=== PATIENT | female | born 1995 | race African-American/Black ===

== ENCOUNTER 2017-08-03 15:07 | Emergency (ER) | payer SELFPAY ==
--- NOTE | 2017-08-03 16:28 | UC ---
Lower Extremity/Ankle HPI - HPI Summary HPI Summary: 22 year old female with leg pain. Pt c/o LEFT ankle pain getting worse since 07/28. States she fell down 5 steps and went to ER the next day 07/29/17. Had XRAY done- neg fx. Sent home w/ gel ankle splint, crutches and rx naproxen. States since this past Tue LEFT ankle pain/swelling has gotten worse. Unable to bear weight on LEFT foot. States pain is in lateral aspect and shoots up LEFT leg- denies foot pain. Pain worsening each day, more loss of ROM, pain 9/10 or 10/10 when not elevated. Pt has broken ankle 2 times in the past and this hurts more than that. NSAIDs have not helped. [ End ] - History of Current Complaint Chief Complaint: UCLowerExtremity Stated Complaint: LEFT ANKLE INJ Time Seen by Provider: 08/03/17 16:19 Hx Obtained From: Patient Hx Last Menstrual Period: 07/31/17 Onset/Duration: Gradual Onset Severity Initially: Moderate Severity Currently: Severe Pain Scale Used: 0-10 Numeric - 10 Aggravating Factor(s): Standing, Ambulation Alleviating Factor(s): Ice Able to Bear Weight: No - Allergies/Home Medications Allergies/Adverse Reactions: Allergies Allergy/AdvReac Type Severity Reaction Status Date / Time Sulfa Antibiotics AdvReac GI Upset Verified 08/03/17 15:38 Home Medications: Home Medications NK [No Home Medications Reported] 08/03/17 [History Confirmed 08/03/17] PMH/Surg Hx/FS Hx/Imm Hx Previously Healthy: Yes - Surgical History Surgical History: Yes Surgery Procedure, Year, and Place: T&A, 1996, [place] - Family History Known Family History: Positive: Hypertension, Diabetes Negative: Respiratory Disease - Social History Alcohol Use: Weekly Alcohol Amount: 4-5 beers/day Substance Use Type: None Substance Use Comment - Amount & Last Used: 04/20/16 Smoking Status (MU): Current Some Day Smoker Type: Cigarettes Amount Used/How Often: "A COUPLE TWICE A WEEK" Length of Time of Smoking/Using Tobacco: 5 Years Have You Smoked in the Last Year: Yes - Immunization History Most Recent Influenza Vaccination: no 2016 Review of Systems Musculoskeletal: Decreased ROM, Edema Neurological: Weakness, Paresthesia All Other Systems Reviewed And Are Negative: Yes Physical Exam Triage Information Reviewed: Yes Appearance: Well-Appearing, Pain Distress - moderate while sitting Vital Signs: Initial Vital Signs Temp 97.8 F 08/03/17 15:39 Pulse 84 08/03/17 15:39 Resp 16 08/03/17 15:39 BP 160/105 08/03/17 15:39 Pulse Ox 100 08/03/17 15:39 Vital Signs Reviewed: Yes Eye Exam: Normal ENT Exam: Normal Neck: Positive: 1 Respiratory Exam: Normal Cardiovascular Exam: Normal Musculoskeletal Exam: Normal Musculoskeletal: Positive: Strength Limited @ - left ankle, ROM Limited @ - left ankle significant loss of ROM, Edema @ - left ankle and foot with ecchymosis, swelling and significant tenderness to the ankle diffusely, and 3 inches proximal to ankle. cap refill in toes < 3 sec. peripheral pulses brisk. Neurological Exam: Normal Psychological Exam: Normal Skin Exam: Normal Lower Extremity Course/Dx - Course Course Of Treatment: Concern for DVT vs Compartment Syndrome -- go to ED immedicately and spoke with Radha garrido EQUIPMENT DRIVER at [facility] patient agrees to go and will go by car her friend will drive declined ambulance - Differential Dx/Diagnosis Provider Diagnoses: left ankle pain Discharge - Discharge Plan Condition: Guarded Disposition: TRANS HIGHER LVL OF CARE FAC Patient Education Materials: Crush Injury (ED) Referrals: Harpreet Haas MD [Medical Doctor] - No Primary Care Phys,NOPCP [Primary Care Provider] - Additional Instructions: Please go directly to the Emergency Room for further evaluation to ensure there is no acute concerns for your ankle and leg.
[2017-08-03 16:42] VITALS: BP 177/108
== END 2017-08-03 16:53 | disposition short-term general hospital (02) ==
LOC: UCCORT 15:07
DX: M25.572 Pain in left ankle and joints of left foot (principal); R60.0 Localized edema; R53.1 Weakness; R20.2 Paresthesia of skin; Z88.2 Allergy status to sulfonamides; Z72.0 Tobacco use
CPT/HCPCS: 99212; G0463

== ENCOUNTER 2018-05-02 14:30 | Emergency (ER) | payer BC ==
[2018-05-02] MEDS ORDERED: Albuterol 2.5 MG/3 ML NEB.SOL* (0.083%) INH ONE (15:09)
[2018-05-02] MEDS ORDERED: predniSONE TAB* 20 MG PO ONE (15:09)
--- NOTE | 2018-05-02 15:20 | UC ---
General HPI - HPI Summary HPI Summary: SICK FOR 1.5 WEEKS WITH HEAD AND CHEST CONGESTION. C/O ONGOING COUGH, SOB AND WHEEZING FROM ASHMA. USING MDI WITH NO RELIEF. - History of Current Complaint Chief Complaint: UCRespiratory Stated Complaint: ASTHMA/CONGESTION Time Seen by Provider: 05/02/18 14:59 Hx Obtained From: Patient Hx Last Menstrual Period: 04/20/18 Onset/Duration: Gradual Onset Timing: Constant Pain Intensity: 5 Associated Signs & Symptoms: Positive: Cough, SOB, Wheezing. Negative: Fever - Allergy/Home Medications Allergies/Adverse Reactions: Allergies Allergy/AdvReac Type Severity Reaction Status Date / Time Sulfa (Sulfonamide AdvReac GI Upset Verified 05/02/18 14:48 Antibiotics) Home Medications: Home Medications Albuterol HFA INHALER* [Ventolin HFA Inhaler*] 2 puff INH Q4H PRN 05/02/18 [ History Confirmed 05/02/18] PMH/Surg Hx/FS Hx/Imm Hx Respiratory History: Asthma Psychological History: Anxiety, Depression - Surgical History Surgical History: Yes Surgery Procedure, Year, and Place: T&A, 1996, [place] - Family History Known Family History: Positive: Hypertension, Diabetes Negative: Respiratory Disease - Social History Occupation: Employed Full-time Alcohol Use: Occasionally Alcohol Amount: 4-5 beers/day Substance Use Type: Marijuana Substance Use Comment - Amount & Last Used: occasional Smoking Status (MU): Current Some Day Smoker Type: Cigarettes Amount Used/How Often: "A COUPLE TWICE A WEEK" Length of Time of Smoking/Using Tobacco: 5 Years Have You Smoked in the Last Year: Yes - Immunization History Most Recent Influenza Vaccination: no 2016 Vaccination Up to Date: Yes Review of Systems Constitutional: Negative Skin: Negative Eyes: Negative ENT: Negative Respiratory: Shortness Of Breath, Cough Cardiovascular: Negative Gastrointestinal: Negative Genitourinary: Negative Motor: Negative Neurovascular: Negative Musculoskeletal: Negative Neurological: Negative Psychological: Negative Is Patient Immunocompromised?: No All Other Systems Reviewed And Are Negative: Yes Physical Exam Triage Information Reviewed: Yes Appearance: Well-Appearing Vital Signs: Initial Vital Signs Temp 97.9 F 05/02/18 14:48 Pulse 74 05/02/18 14:48 Resp 20 05/02/18 14:48 BP 160/106 05/02/18 14:48 Pulse Ox 98 05/02/18 14:48 Vital Signs Reviewed: Yes Eyes: Positive: Conjunctiva Clear ENT: Positive: Pharynx normal, TMs normal. Negative: Nasal congestion, Nasal drainage Neck: Positive: Supple, Nontender, No Lymphadenopathy Respiratory: Positive: No respiratory distress, Decreased breath sounds, Wheezing - SCATTERED Cardiovascular: Positive: RRR, No Murmur Abdomen Description: Positive: Nontender, No Organomegaly, Soft Bowel Sounds: Positive: Present Musculoskeletal: Positive: ROM Intact Neurological: Positive: Alert Psychological: Positive: Age Appropriate Behavior Skin Exam: Normal Re-Evaluation - Re-Evaluation First Eval Re-Evaluation Time: 15:40 Change: Improved - BP 159/88, IMPROVED AERATION, BREATHING EASIER. Course/Dx - Course Course Of Treatment: Nontoxic. Not hypoxic no concern for pneumonia. We'll treat for asthma flare. - Differential Dx - Multi-Symptom Provider Diagnoses: ASTHMA FLARE Discharge - Sign-Out/Discharge Documenting (check all that apply): Patient Departure All imaging exams completed and their final reports reviewed: No Studies - Discharge Plan Condition: Stable Disposition: HOME Prescriptions: Albuterol HFA INHALER* [Ventolin HFA Inhaler*] 2 puff INH Q6H #1 mdi predniSONE TAB* [Deltasone 20 MG TAB*] 40 mg PO DAILY 4 Days #8 tab Patient Education Materials: Asthma (ED) Forms: *Work Release Referrals: Jessica Gloria PA [Primary Care Provider] - 5 Days - Billing Disposition and Condition Condition: STABLE Disposition: Home
[2018-05-02 15:40] VITALS: BP 159/88
== END 2018-05-02 15:48 | disposition home or self-care (01) ==
LOC: UCCORT 14:30
DX: J45.909 Unspecified asthma, uncomplicated (principal); Z88.1 Allergy status to other antibiotic agents; F17.210 Nicotine dependence, cigarettes, uncomplicated
CPT/HCPCS: 99212; G0463; J7512

== ENCOUNTER 2018-10-20 16:09 | Emergency (ER) | payer BC ==
[2018-10-20 17:21] VITALS: BP 181/87
[2018-10-20] MEDS ORDERED: Albuterol 2.5 MG/3 ML NEB.SOL* (0.083%) INH ONE (18:10)
[2018-10-20] MEDS ORDERED: predniSONE TAB* 20 MG PO ONE (18:10)
--- NOTE | 2018-10-20 18:10 | UC ---
UC General HPI - HPI Summary HPI Summary: 4 DAYS OF NASAL CONGESTION AND COUGH WITH CHEST CONGESTION. EARS AND THROAT HURT FROM COUGHING. NO FEVER. + SOB AND ASTHMA. USING HER INHALER. - History of Current Complaint Chief Complaint: UCGeneralIllness Stated Complaint: COUGH,UPPER RESPITORY Time Seen by Provider: 10/20/18 18:00 Hx Obtained From: Patient Hx Last Menstrual Period: 08/2018 Onset/Duration: Gradual Onset Timing: Constant Pain Intensity: 7 Associated Signs & Symptoms: Negative: Chest Pain, Fever - Allergy/Home Medications Allergies/Adverse Reactions: Allergies Allergy/AdvReac Type Severity Reaction Status Date / Time Sulfa (Sulfonamide AdvReac GI Upset Verified 10/20/18 17:09 Antibiotics) Home Medications: Home Medications Bcp 1 tab PO DAILY 10/20/18 [History Confirmed 10/20/18] Buspirone HCl 7.5 mg PO BID PRN 10/20/18 [History Confirmed 10/20/18] Dm/PE/Acetaminophen/Doxylamine [Daytime-Nighttime Cold-Flu] 1 each PO DAILY PRN 10/20/18 [History Confirmed 10/20/18] GuaiFENesin DM* [Robitussin DM*] 10 ml PO Q6H PRN 10/20/18 [History Confirmed ] PMH/Surg Hx/FS Hx/Imm Hx Respiratory History: Asthma - Surgical History Surgical History: Yes Surgery Procedure, Year, and Place: T&A, 1996, [place] - Family History Known Family History: Positive: Hypertension, Diabetes Negative: Respiratory Disease - Social History Occupation: Employed Full-time Alcohol Use: Weekly Alcohol Amount: 2-3 beers/day Substance Use Type: Marijuana Substance Use Comment - Amount & Last Used: occasional Smoking Status (MU): Current Some Day Smoker Type: Cigarettes Amount Used/How Often: 1 cig per day or every other day. Length of Time of Smoking/Using Tobacco: 5 Years Have You Smoked in the Last Year: Yes - Immunization History Most Recent Influenza Vaccination: no 2017 Vaccination Up to Date: Yes Review of Systems All Other Systems Reviewed And Are Negative: Yes ENT: Positive: Sore Throat, Ear Ache Respiratory: Positive: Shortness Of Breath, Cough Physical Exam Triage Information Reviewed: Yes Appearance: Well-Appearing Vital Signs: Initial Vital Signs Temp 97.9 F 10/20/18 17:14 Pulse 89 10/20/18 17:14 Resp 16 10/20/18 17:14 BP 181/87 10/20/18 17:14 Pulse Ox 100 10/20/18 17:14 Vital Signs Reviewed: Yes Eyes: Positive: Conjunctiva Clear ENT: Positive: Pharynx normal, Nasal congestion, Nasal drainage - CLEAR, TMs normal Neck: Positive: Supple, Nontender, No Lymphadenopathy Respiratory: Positive: Lungs clear, No respiratory distress, Decreased breath sounds, Other: - npc. Negative: Crackles, Rhonchi Cardiovascular: Positive: RRR, No Murmur Abdomen Description: Positive: Nontender, No Organomegaly, Soft Bowel Sounds: Positive: Present Musculoskeletal: Positive: ROM Intact Neurological: Positive: Alert Psychological: Positive: Age Appropriate Behavior Skin Exam: Normal Re-Evaluation - Re-Evaluation First Eval Re-Evaluation Time: 18:47 Change: Improved - MUCH BETTER AERATION. NO COUGH. PT FEELS IMPROVED. Course/Dx - Course Course Of Treatment: REPEAT BP L ARM MANUAL BY MYSELF 140/90. PT STATES BP ALWAYS GOES UP WHEN SICK THEN NORMAL ONCE BETTER - Differential Dx - Multi-Symptom Differential Diagnoses: Other - NO CONCERN FOR PNEUMONIA. ANTIBIOTIC NOT INDICATED. PT WILL CONTINUE THE RESCUE INHALER 2 PUFFS EVERY 4-6 HOURS. WILL ADD STEROID. - Diagnoses Provider Diagnosis: URI (upper respiratory infection), Asthma Discharge - Sign-Out/Discharge Documenting (check all that apply): Patient Departure All imaging exams completed and their final reports reviewed: No Studies - Discharge Plan Condition: Stable Disposition: HOME Prescriptions: predniSONE [Prednisone 20 MG TAB] 40 mg PO DAILY 5 Days #10 tablet Patient Education Materials: Asthma (DC), Upper Respiratory Infection (DC) Forms: *Work Release Referrals: Jessica Gloria PA [Primary Care Provider] - 5 Days - Billing Disposition and Condition Condition: STABLE Disposition: Home
== END 2018-10-20 18:49 | disposition home or self-care (01) ==
LOC: UCCORT 16:09
DX: J06.9 Acute upper respiratory infection, unspecified (principal); J45.909 Unspecified asthma, uncomplicated; F17.210 Nicotine dependence, cigarettes, uncomplicated; Z88.2 Allergy status to sulfonamides; Z79.899 Other long term (current) drug therapy
CPT/HCPCS: 99212; G0463; J7512

== ENCOUNTER 2018-10-26 13:02 | Emergency (ER) | payer BC ==
[2018-10-26 14:34] VITALS: BP 160/100
--- NOTE | 2018-10-26 15:11 | UC ---
Respiratory Complaint HPI - HPI Summary HPI Summary: 23-year-old female with history of asthma presents with persistent cough, shortness of breath, and wheezing. States she was seen at this facility on 10/20 for similar symptoms, diagnosed with a viral URI, and started on prednisone and recommended continued use of her albuterol inhaler. States she completed the prednisone yesterday and has seen little to no improvement in her symptoms. She continues to use her albuterol nebulizer every morning and in the evening as well as her albuterol inhaler every 4 hours throughout the day. States her cough is occasionally productive especially in the morning for yellowish-green sputum. Associated with some mild nasal congestion. Denies fever, chills, ear pain, sore throat, chest pain, palpitations, abdominal pain, nausea, or vomiting. - History of Current Complaint Chief Complaint: UCRespiratory Stated Complaint: COUGH,CHEST CONGESTION,ASTHMA CONCERN Time Seen by Provider: 10/26/18 14:39 Hx Obtained From: Patient Hx Last Menstrual Period: 09/25/18 Pain Intensity: 0 - Allergies/Home Medications Allergies/Adverse Reactions: Allergies Allergy/AdvReac Type Severity Reaction Status Date / Time Sulfa (Sulfonamide AdvReac GI Upset Verified 10/20/18 17:09 Antibiotics) Home Medications: Home Medications Albuterol 2.5MG/3ML (0.083%)* [Ventolin 2.5 MG/3 ML NEB.BRITTANY*] 2.5 mg INH Q6H PRN 10/26/18 [History Confirmed 10/26/18] PMH/Surg Hx/FS Hx/Imm Hx Respiratory History: Asthma - Surgical History Surgical History: Yes Surgery Procedure, Year, and Place: T&A, 1996, [place] - Family History Known Family History: Positive: Hypertension, Diabetes Negative: Respiratory Disease - Social History Occupation: Employed Full-time Lives: With Family Alcohol Use: Weekly Alcohol Amount: 2-3 beers/day Substance Use Type: Marijuana Substance Use Comment - Amount & Last Used: occasional Smoking Status (MU): Current Some Day Smoker Type: Cigarettes Amount Used/How Often: 1 cig per day or every other day. Length of Time of Smoking/Using Tobacco: 5 Years Have You Smoked in the Last Year: Yes - Immunization History Most Recent Influenza Vaccination: no 2017 Vaccination Up to Date: Yes Review of Systems All Other Systems Reviewed And Are Negative: Yes Constitutional: Negative: Fever, Chills Skin: Negative: Rash Eyes: Negative: Drainage, Eye Redness ENT: Positive: Sore Throat, Nasal Discharge, Sinus Congestion. Negative: Ear Ache, Sinus Pain/Tenderness Respiratory: Positive: Shortness Of Breath, Cough, Other - Wheezing Cardiovascular: Negative: Palpitations, Chest Pain Gastrointestinal: Negative: Abdominal Pain, Vomiting, Diarrhea, Nausea Genitourinary: Positive: Negative Musculoskeletal: Positive: Negative Neurological: Positive: Negative Is Patient Immunocompromised?: No Physical Exam - Summary Physical Exam Summary: GENERAL APPEARANCE: Well developed, obese, alert and cooperative, and appears to be in no acute distress. EYES: Conjunctiva clear. No drainage. Vision is grossly intact. EARS: External auditory canals and tympanic membranes clear, hearing grossly intact. NOSE: Mild nasal congestion. No nasal discharge. THROAT: Pharynx normal. Tonsils surgically absent. Uvula midline. NECK: Neck supple, non-tender without lymphadenopathy. CARDIAC: Normal S1 and S2. No S3, S4 or murmurs. Rhythm is regular. There is no peripheral edema, cyanosis or pallor. Extremities are warm and well perfused. Capillary refill is less than 2 seconds. Peripheral pulses intact. LUNGS: Mildly diminished breath sounds bilaterally. Clear to auscultation without rales, rhonchi, wheezing. ABDOMEN: Positive bowel sounds. Soft, nondistended, nontender. No guarding or rebound. No masses or hepatosplenomegally. MUSKULOSKELETAL: ROM intact to all extremities. No joint erythema or tenderness. Normal muscular development. Normal gait. SKIN: Skin normal color, texture and turgor with no lesions or eruptions. Triage Information Reviewed: Yes Vital Signs: Initial Vital Signs Temp 98.2 F 10/26/18 14:26 Pulse 82 10/26/18 14:26 Resp 16 10/26/18 14:26 BP 160/100 10/26/18 14: Pulse Ox 100 10/26/18 14:26 Vital Signs Reviewed: Yes Diagnostics - Radiology No standard instances Radiology Interpretation Completed By: Radiologist Summary of Radiographic Findings: Order Information: CHEST PA LAT 2 VWS. Accession Number: [id number]. CPT: 81557. INDICATION: Cough and shortness of breath. COMPARISON: There are no relevant prior studies available for comparison. TECHNIQUE: Dual-energy PA and lateral views of the chest were obtained. FINDINGS: The heart is within normal limits in size. Mediastinal and hilar contours appear within normal limits. The lungs are clear. No pleural effusion is present. IMPRESSION: NO EVIDENCE FOR ACTIVE CARDIOPULMONARY DISEASE. Respiratory Course/Dx - Course Course Of Treatment: 23-year-old female with history of asthma presents with persistent cough, shortness of breath, and wheezing. States she was seen at this facility on 10/20 for similar symptoms, diagnosed with a viral URI, and started on prednisone and recommended continued use of her albuterol inhaler. States she completed the prednisone yesterday and has seen little to no improvement in her symptoms. She continues to use her albuterol nebulizer every morning and in the evening as well as her albuterol inhaler every 4 hours throughout the day. States her cough is occasionally productive especially in the morning for yellowish-green sputum. Associated with some mild nasal congestion. Denies fever, chills, ear pain, sore throat, chest pain, palpitations, abdominal pain, nausea, or vomiting. Afebrile. Vital signs stable. Exam was remarkable for some mild nasal congestion, mildly diminished bilateral breath sounds without rales, rhonchi, or wheezing. Chest x-ray showed no acute cardiopulmonary pathology. I will start her on azithromycin Dosepak for an acute bronchitis and continue her on a prednisone taper. She is to follow-up with her primary care provider in 3-5 days if symptoms do not improve. Discharged trachitis warning symptoms reviewed with the patient. Verbalizes understanding and agrees with plan of care. - Differential Dx/Diagnosis Differential Diagnosis/HQI/PQRI: Asthma, Bronchitis, Lower Resp Infection Provider Diagnosis: Acute bronchitis with asthma with acute exacerbation Discharge - Sign-Out/Discharge Documenting (check all that apply): Patient Departure All imaging exams completed and their final reports reviewed: Yes - Discharge Plan Condition: Stable Disposition: HOME Prescriptions: Azithromyxin SHARI (NF) [Z-Shari (Zithromax) 250 mg tabs #6] 2 tab PO .TODAY, THEN 1 DAILY #6 tab predniSONE TAB* [Deltasone 10 MG TAB*] 10 mg PO DAILY #30 tab Patient Education Materials: Asthma (ED), Acute Bronchitis (ED) Forms: *Work Release Referrals: Jessica Gloria PA [Primary Care Provider] - 3 Days Additional Instructions: The chest x-ray performed in the clinic today was negative for pneumonia. Your history and exam are consistent with acute bronchitis with asthma exacerbation. Since your symptoms are not improving we will start you on an antibiotic and put you on a prednisone taper. Start azithromycin 2 tabs today then 1 tab a day for next 4 days. Take prednisone 40 mg (4 tabs) daily x 3 days, then 30 mg (3 tabs) daily for 3 days, then 20 mg (2 tabs) daily for 3 days, then 10 mg (1 tab) daily for 3 days , then stop. Continue using your albuterol nebulizer or inhaler as directed for shortness of breath or wheezing. Get plenty of rest. Drink plenty of fluids. Run a cool mist humidifer in your room at night. Take over the counter acetaminophen (Tylenol) or ibuprofen (Advil, Motrin) according to directions as needed for pain or fever. Follow up with your primary care provider in 3-5 days if symptoms do not improve. Seek immediate medical attention in the emergency room if you have fever greater than 100.5 F despite taking acetaminophen or ibuprofen, have chest pain , difficulty breathing, or have any worsening of symptoms. - Billing Disposition and Condition Condition: STABLE Disposition: Home - Attestation Statements Provider Attestation: Per institutional requirements, I have reviewed the chart, however, I was not consulted specifically or made aware of this patient by the midlevel provider. I did not personally evaluate, interact with , or disposition this patient.
== END 2018-10-26 15:37 | disposition home or self-care (01) ==
LOC: UCCORT 13:02
DX: J20.9 Acute bronchitis, unspecified (principal); J45.901 Unspecified asthma with (acute) exacerbation; F17.210 Nicotine dependence, cigarettes, uncomplicated; Z88.2 Allergy status to sulfonamides
CPT/HCPCS: 71046; 99212; G0463

== ENCOUNTER 2019-06-21 13:29 | Emergency (ER) | payer BC ==
[2019-06-21 14:46] VITALS: BP 177/124
--- NOTE | 2019-06-21 14:59 | UC ---
Skin Complaint HPI - HPI Summary HPI Summary: 24-year-old female comes in with a chief complaint of a rash the left forearm and left upper back. She describes it as burning and itchy. Nothing really makes it better or worse. Is no drainage fevers no chills feels well otherwise. - History of Current Complaint Chief Complaint: UCSkin Time Seen by Provider: 06/21/19 14:36 Stated Complaint: LEFT ARM SKIN CONCERN Hx Last Menstrual Period: onset today Pain Intensity: 8 - Allergy/Home Medications Allergies/Adverse Reactions: Allergies Allergy/AdvReac Type Severity Reaction Status Date / Time Sulfa (Sulfonamide AdvReac GI Upset Verified 06/21/19 14:35 Antibiotics) Home Medications: Home Medications Benazepril HCl [Lotensin] 10 mg PO DAILY 06/21/19 [History Confirmed 06/21/19] Norethindrone-Ethinyl Estrad [Alyacen ] 1 tab PO DAILY 06/21/19 [History Confirmed 06/21/19] diPHENhydraMINE PO* [Benadryl PO 25 MG TAB*] 25 mg PO Q6H PRN 06/21/19 [History Confirmed 06/21/19] PMH/Surg Hx/FS Hx/Imm Hx Previously Healthy: Yes Cardiovascular History: Hypertension Respiratory History: Asthma - Surgical History Surgical History: Yes Surgery Procedure, Year, and Place: T&A, 1996, [place] - Family History Known Family History: Positive: Hypertension, Diabetes Negative: Respiratory Disease - Social History Alcohol Use: Occasionally Alcohol Amount: 2-3 beers/day Substance Use Type: Marijuana Substance Use Comment - Amount & Last Used: occasional Smoking Status (MU): Current Some Day Smoker Type: Cigarettes Amount Used/How Often: 1 cig per day or every other day. Length of Time of Smoking/Using Tobacco: 5 Years Have You Smoked in the Last Year: Yes Household Exposure Type: Cigarettes - Immunization History Most Recent Influenza Vaccination: no 2017 Vaccination Up to Date: Yes Review of Systems All Other Systems Reviewed And Are Negative: Yes Constitutional: Positive: Negative Skin: Positive: Other - see hpi Eyes: Positive: Negative ENT: Positive: Negative Respiratory: Positive: Negative Cardiovascular: Positive: Negative Gastrointestinal: Positive: Negative Motor: Positive: Negative Neurovascular: Positive: Negative Musculoskeletal: Positive: Negative Neurological: Positive: Negative Psychological: Positive: Negative Is Patient Immunocompromised?: No Physical Exam Triage Information Reviewed: Yes Appearance: Well-Appearing, No Pain Distress, Well-Nourished Vital Signs: Initial Vital Signs Temp 97.9 F 06/21/19 14:38 Pulse 97 06/21/19 14:38 Resp 20 06/21/19 14:38 BP 177/124 06/21/19 14:38 Pulse Ox 98 06/21/19 14:38 Vital Signs Reviewed: Yes Eye Exam: Normal Eyes: Positive: Conjunctiva Clear Neck: Positive: Supple Respiratory: Positive: No respiratory distress Musculoskeletal: Positive: Strength Intact, ROM Intact Neurological: Positive: Alert Psychological: Positive: Age Appropriate Behavior Skin: Positive: Other - On the medial aspect of the left forearm back through the triceps on the left side and a small patch just the left of the spine at the C7 C8 level wears a rash that scattered with an erythematous base. No vesicles no drainage no streaking. Course/Dx - Diagnoses Provider Diagnosis: Shingles Discharge ED - Sign-Out/Discharge Documenting (check all that apply): Patient Departure All imaging exams completed and their final reports reviewed: No Studies - Discharge Plan Condition: Stable Disposition: HOME Prescriptions: Valacyclovir HCl [Valacyclovir] 1 gm PO TID #21 tab Patient Education Materials: Shingles (ED) Referrals: Jessica Gloria PA [Primary Care Provider] - Additional Instructions: FOLLOW UP WITH YOUR DOCTOR IF NOT COMPLETELY IMPROVED. GET REEVALUATED SOONER IF NOT IMPROVING OR WORSE OR ANY QUESTIONS OR CONCERNS. - Billing Disposition and Condition Condition: STABLE Disposition: Home
== END 2019-06-21 15:04 | disposition home or self-care (01) ==
LOC: UCCORT 13:29
DX: B02.9 Zoster without complications (principal); I10 Essential (primary) hypertension; F17.210 Nicotine dependence, cigarettes, uncomplicated; J45.909 Unspecified asthma, uncomplicated; Z79.899 Other long term (current) drug therapy
CPT/HCPCS: 99212; G0463